=== PATIENT | female | born 1985 | race Caucasian/White ===

== ENCOUNTER 2023-02-24 18:24 | Emergency (ER) | payer OTHER, SELFPAY ==
[2023-02-24 18:31] VITALS: BP 111/69; BP 189/89; PULSE 100; PULSE 99; RESP 18; TEMP 37; O2SAT 97; O2SAT 98; BMI 31.3
--- NOTE | 2023-02-24 18:37 | PC.NURSE ---
reported she used 3 bags of heroin today. Found unresponsive in car. Narcan 8mg administered. n/v. denies chest pain/WU/SOB. A & Ox3. VSS. Objectively tremulous and diaphoretic. Placed on bedside monitor. Awaiting price changer w/ security
--- NOTE | 2023-02-24 19:12 | ED.GENADULT ---
HPI - General Adult General Chief complaint: Overdose Stated complaint: OVERDOSE + NARCAN Time Seen by Provider: 02/24/23 19:07 Source: patient, RN notes reviewed and old records reviewed Mode of arrival: EMS Limitations: no limitations History of Present Illness HPI narrative: 38-year-old female presents for evaluation of ?I overdosed. ? Patient admits to using heroin around 4:30 p.m. Apparently she was found unresponsive in her car Patient was given Narcan by EMS Patient states that she remembers using 1 bag of heroin but she reports that she had 3 of them so she is unsure exactly how many she used She reports that she smokes the drugs and does not inject Patient reports this was an accidental overdose and she had no intent to harm herself She has no complaints at this time except that she is cold Related Data Allergies Allergy/AdvReac Type Severity Reaction Status Date / Time No Known Allergies Allergy Unverified 03/12/20 15:48 [No Known Allergies*] Review of Systems Constitutional: Constitutional: Reports chills and Denies fever(s) Cardiovascular: Cardiovascular: Denies chest pain and Denies dyspnea Respiratory: Respiratory: Denies dyspnea Gastrointestinal: Gastrointestinal: Denies abdominal pain Musculoskeletal: Musculoskeletal: Denies back pain PMFSH Social History Social History Advance Directives: No Advance Directives Information Provided: Yes Physical Exam ED Vital Signs: Vital Signs - 24 hr 02/24/23 18:31 Temperature 98.6 F Pulse Rate 99 Respiratory Rate 18 Blood Pressure 111/69 Pulse Oximetry 97 Oxygen Delivery Method Room Air BMI result Body Mass Index 31.3 Const General: healthy appearing, comfortable, no acute distress, alert and awake Nutritional Appearance: well nourished Orientation/consciousness: patient oriented x3 HENMT Head: Yes normocephalic and Yes atraumatic Eyes Eyelids: Yes eyelids normal Conjunctivae: conjunctivae normal Sclerae: sclerae normal Corneas: corneas normal Pupils: Equal, round and reactive pupils present EOM: EOMs intact bilaterally Neck Neck: Yes full ROM Resp Effort & Inspection: normal respiratory effort, able to speak in complete sentences and not labored Skin General skin exam: no rashes or lesions noted and elasticity normal Neuro General: patient oriented x3 Cranial nerves: Yes Equal, round and reactive pupils present and Yes Bilaterally intact EOM present Cognition (Neuro): normal cognition Extrem Other: Moving all extremities well without any obvious deformities Medical Decision Making Medical Decision Making [facility] Narrative: 38-year-old female presents for evaluation of an opioid overdose. She admits to using opiates and responded well to Narcan. She is wide awake, able to stay awake and answer all my questions appropriately. She is requesting discharge because she does not want to change into a hospital gown. I do not feel that the patient is at risk for becoming unresponsive again. The patient will be discharged at this time. Her mother is here to pick her up. she was given take home Narcan Differential Diagnosis Differential Diagnoses: The differential diagnosis associated with the presentation includes Opioid overdose Heroin abuse Substance abuse Polysubstance abuse Discharge Plan Discharge Clinical Impression: Drug overdose Patient Disposition: Home, Self-Care Instructions: Adult Overdose (ED) Additional Instructions: You are being discharged with Narcan for intranasal use for any accidental overdose in the future. You should avoid using any illicit substances Follow-up with your primary doctor
[2023-02-24] MEDS: Naloxone HCl Nasal TAKE HOME 4 MG SPRAY 8 MG NOSTRILALT (19:26)
== END 2023-02-24 19:31 | disposition home or self-care (01) ==
PROVIDERS: Emergency Provider Emergency Medicine; PCP Family Medicine
DX: T40.1X1A Poisoning by heroin, accidental (unintentional), initial encounter (principal); Y92.9 Unspecified place or not applicable
CPT/HCPCS: 99282; 99283

== ENCOUNTER 2024-01-12 14:21 | Outpatient (AMB) | payer OTHER, SELFPAY ==
[2024-01-12 14:25] VITALS: BP 100/64; PULSE 95; O2SAT 100; BMI 29.1
--- NOTE | 2024-01-12 14:25 | A.OFFVIS_ITS ---
Vital Signs 01/12/24 14:25 Height 4 ft 11 in Weight 144 lb 4 oz BMI 29.1 BP 100/64 Blood Pressure Location Rt brachial Position Sitting Pulse 95 Pulse Source Pulse Oximeter Pulse Oximetry (%) 100 Oxygen Delivery Method Room Air Intake Visit Reasons: Asthma Allergies No Known Allergies [No Known Allergies*] Allergy (Unverified 01/12/24 14:31) HPI HPI Asthma: Details: Shazia is a pleasant 38 year old female, former tobacco smoker, with less than 5 pack year history, currently vaping THC x 3-4 years with underlying asthma and h/o cervical cancer s/p chemo, radiation and partial hysterectomy at 29 years old. [facility] She was in the [employer] x 3 years, with no noted occupational exposures. She reports significant post nasal drip, dry cough. wheezing and dyspnea on moderate exertion for the last few months. She was recently prescribed Wixela 100 mcg 1-2 months ago, with minimal improvement in symptoms. She continues to use albuterol multiple times per day with good effect. Recent PFT suggestive of asthma, FEV1 62%, post FEV1 75%, TLC normal, DLCO normal and increased RV. She denies prior history of asthma. CXR 07/19 unremarkable. Denies any need for intubation in the past. She reports seasonal allergies, no recent allergy testing. She does have a cat at home. She denies any pertinent family history. [facility] Social History (Updated 01/12/24 @ 14:31 by Marcie Zuniga CMA) Patient Tobacco Use Status: Former Tobacco user Tobacco use type: Cigarette e-Cigarette/Vaping Use: Currently Using Review of Systems Const Denies chills, Denies excessive sweating, Denies fever(s), Denies headache(s) and Denies night sweats Eyes Denies dry eyes, Denies irritation and Denies itchy eyes ENT Reports Normal hearing present, Denies headache(s) and Denies nasal discharge Card Denies chest pain, Denies chest pain at rest, Denies chest pain with activity, Denies claudication, Denies leg edema, Denies orthopnea and Denies paroxysmal nocturnal dyspnea Resp Denies chest congestion, Denies excessive phlegm production, Denies pain on inspiration, Denies pain with cough and Denies stridor Musc Denies myalgias Neuro Reports Normal hearing present and Denies headache(s) Endo Denies excessive sweating Ayaan/Lymph Denies lymphadenopathy Aller/Immun Denies itchy eyes and Denies seasonal rhinorrhea Physical Exam Vital Signs: Last Vital Signs Pulse 95 01/12/24 14:25 BP 100/64 01/12/24 14:25 Pulse Ox 100 01/12/24 14:25 Oxygen Delivery Method Room Air 01/12/24 14:25 BMI result Body Mass Index 29.1 Const General: cooperative, healthy appearing, comfortable, no acute distress, well developed and alert Orientation/consciousness: patient oriented x3 Limitations: no limitations HEENT Head: Yes normal to inspection, Yes normocephalic and Yes atraumatic Ears: hearing grossly normal bilaterally and external ears normal Eyes General: appearance normal, both eyes and all related structures Eyelids: Yes eyelids normal Sclerae: sclerae normal EOM: EOMs intact bilaterally Neck Neck: Yes normal visual inspection and Yes no lymphadenopathy Lymphatic: no lymphadenopathy noted Chest Chest palpation & inspection: normal inspection of the chest Resp Effort & Inspection: normal respiratory effort, able to speak in complete sentences, no audible wheezes, no cough, no stridor, not tachypneic, no tripod p ositioning and no use of accessory muscles Auscultation: clear to auscultation bilaterally Cardio Jugular venous distension: no JVD Rate: regular rate Rhythm: regular rhythm Skin Other: warm, dry General skin exam: no rashes or lesions noted Neuro General: patient oriented x3 Cranial nerves: Yes Normal hearing present Cognition (Neuro): normal cognition Gait exam (Neuro): Normal gait present Extrem General: Yes normal to inspection, Yes capillary refill normal, Yes no clubbing, cyanosis or edema and Yes no pedal edema Psych Appearance: grossly normal and well kempt Speech and movement: Normal speech and movement present and Clear speech present Affect: normal affect Attitude: cooperative Thought process: Normal thought process present Thought content: Normal thought content present Insight: Good insight present (Psych) Judgement: Good judgement present (Psych) Assessment & Plan Assessment & Plan (1) Asthma: Code(s): J45.909 - Unspecified asthma, uncomplicated Category: Medical (2) Environmental allergies: Code(s): Z91.09 - Other allergy status, other than to drugs and biological substances Category: Medical (3) Post-nasal drip: Code(s): R09.82 - Postnasal drip Category: Medical Plan Shazia presents with newly diagnosed asthma and suboptimal response with Wixela 100 mcg, using albuterol frequently. Will increase to 250 mcg. There appears to be an allergic component to symptoms, will send for RAST and encouraged use of daily anthistamine. Will trial nasal ipratropium for signficant post nasal drip. All questions were answered and patient is in agreement of plan. Will follow up to review results and response to increased dose of Wixela. Orders: Orders Resp Allergy Profile Region I 01/12/24 Z91.09 - Other allergy status, other than to drugs and biological substances Complete Blood Count Auto Diff Today Z91.09 - Other allergy status, other than to drugs and biological substances Immunoglobulin E Today Z91.09 - Other allergy status, other than to drugs and biological substances Medications: New albuterol sulfate 90 mcg/actuation 2 puffs inhalation Q4-6H PRN 1 ea 2RF shortness of breath or wheezing ipratropium bromide administer into each nostril 2 sprays intranasal BID 30 mL 3RF fluticasone propion-salmeterol 250-50 mcg/dose (Wixela Inhub) 1 inh inhalation Q12H 60 ea 3RF Coding Level of Care Code New Pt Level 4 (37677) Diagnoses Asthma J45.909 Environmental allergies Z91.09 Post-nasal drip R09.82
== END 2024-01-12 14:54 | disposition home or self-care (01) ==
PROVIDERS: PCP Family Medicine; Referring Provider Nurse Practitioner Family; Visit Provider Nurse Practitioner Family
DX: J45.909 Unspecified asthma, uncomplicated (principal); Z91.09 Other allergy status, other than to drugs and biological substances; R09.82 Postnasal drip
CPT/HCPCS: 99204

== ENCOUNTER → 2024-01-12 14:21 | Outpatient (BNVA) | payer OTHER, SELFPAY | PROVIDERS: PCP Family Medicine; Referring Provider Nurse Practitioner Family; Visit Provider Nurse Practitioner Family | DX: J45.909 Unspecified asthma, uncomplicated (principal); R09.82 Postnasal drip; Z91.09 Other allergy status, other than to drugs and biological substances; Z87.891 Personal history of nicotine dependence | CPT/HCPCS: 99202 ==

== ENCOUNTER 2024-01-23 08:24 | Outpatient (AMB) | payer OTHER, SELFPAY ==
--- NOTE | 2024-01-22 15:34 | MHC.OFFVIS ---
Vital Signs 01/23/24 08:30 Height 4 ft 11 in Weight 147 lb 2 oz BMI 29.7 BP 112/70 Blood Pressure Location Rt brachial Position Sitting Pulse 91 Pulse Source Pulse Oximeter Pulse Oximetry (%) 96 Oxygen Delivery Method Room Air Intake Visit Reasons: Asthma Allergies No Known Allergies [No Known Allergies*] Allergy (Unverified 01/23/24 08:33) HPI HPI Asthma: Details: Shazia is a pleasant 38 year old female, former tobacco smoker, with less than 5 pack year history, currently vaping THC x 3-4 years with underlying asthma and h/o cervical cancer s/p chemo, radiation and partial hysterectomy at 29 years old. At the last visit, she reported significant post nasal drip, dry cough, wheezing and dyspnea on moderate exertion for the last few months. Her Wixela was increased from 100 mcg to 250 mcg less than a week ago and has yet to obtain RAST testing. Today she presents for an acute visit. She notes her nasal congestion and sinus pressure is worsening, with tenacious yellow to white sputum. She denies any fevers or chills. [facility] Social History Patient Tobacco Use Status: Former Tobacco user Tobacco use type: Cigarette e-Cigarette/Vaping Use: Currently Using Review of Systems Const Denies chills, Denies excessive sweating, Denies fever(s), Denies headache(s) and Denies night sweats Eyes Denies dry eyes, Denies irritation and Denies itchy eyes ENT Reports Normal hearing present, Denies headache(s), Reports nasal congestion, Reports nasal discharge, Reports post nasal drip and Reports sinus pain Card Denies chest pain, Denies chest pain at rest, Denies chest pain with activity, Denies claudication, Denies leg edema, Reports dyspnea on exertion, Denies orthopnea and Denies paroxysmal nocturnal dyspnea Resp Reports change in phlegm color, Reports cough, Denies excessive phlegm production, Denies pain on inspiration, Denies pain with cough, Reports dyspnea on exertion, Denies stridor and Reports wheezing Musc Denies myalgias Neuro Reports Normal hearing present and Denies headache(s) Endo Denies excessive sweating Ayaan/Lymph Denies lymphadenopathy Aller/Immun Denies itchy eyes, Denies seasonal rhinorrhea and Reports wheezing Physical Exam Vital Signs: Last Vital Signs Pulse 91 07/30/24 08:30 BP 112/70 01/23/24 08:30 Pulse Ox 96 01/23/24 08:30 Oxygen Delivery Method Room Air 01/23/24 08:30 BMI result Body Mass Index 29.7 Neuro Cranial nerves: Yes Normal hearing present Assessment & Plan Assessment & Plan (1) Asthma-COPD overlap syndrome: Code(s): J44.89 - Other specified chronic obstructive pulmonary disease Category: Medical (2) Environmental allergies: Code(s): Z91.09 - Other allergy status, other than to drugs and biological substances Category: Medical (3) Post-nasal drip: Code(s): R09.82 - Postnasal drip Category: Medical (4) Sinusitis: Code(s): J32.9 - Chronic sinusitis, unspecified Category: Medical Plan Discussed effectiveness of increased Wixela may take another week before noticing any improvements. Encouraged patient to obtain RAST labs today. She trialed ipratropium with no change in post nasal drip. She presents today with worsening sinusitis and no recent antibiotic treatment, will send augmentin. She is aware if symptoms worsen to call the office or PCP. All questions were answered and patient is in agreement of plan. Will follow up for regularly scheduled appointment in January or sooner if needed. Medications: New amoxicillin-pot clavulanate 875-125 mg 1 tab PO Q12H 20 tabs 0RF Coding Level of Care Code Est Pt Level 3 (90779) Diagnoses Asthma-COPD overlap syndrome J44.89 Environmental allergies Z91.09 Post-nasal drip R09.82 Sinusitis J32.9
[2024-01-23 08:30] VITALS: BP 112/70; PULSE 91; O2SAT 96; BMI 29.7
== END 2024-01-23 08:51 | disposition home or self-care (01) ==
PROVIDERS: PCP Family Medicine; Visit Provider Nurse Practitioner Family
DX: J44.89 Other specified chronic obstructive pulmonary disease (principal); Z91.09 Other allergy status, other than to drugs and biological substances; R09.82 Postnasal drip; J32.9 Chronic sinusitis, unspecified
CPT/HCPCS: 99213

== ENCOUNTER → 2024-01-23 08:24 | Outpatient (BNVA) | payer OTHER, SELFPAY | PROVIDERS: PCP Family Medicine; Visit Provider Nurse Practitioner Family | DX: J44.89 Other specified chronic obstructive pulmonary disease (principal); J32.9 Chronic sinusitis, unspecified; R09.82 Postnasal drip; Z91.09 Other allergy status, other than to drugs and biological substances | CPT/HCPCS: 99212 ==

== ENCOUNTER 2024-01-23 10:15 | Outpatient (REF) | payer OTHER, SELFPAY ==
[2024-01-23 11:51] LABS: Basophils Absolute Auto 0.1 X10*3/uL (0.0-0.2); Basophils Percent Auto 0.8 % (0-2); Eosinophils Percent Auto 23.9 % (0-4); Hematocrit 38.9 % (37.0-47.0); Hemoglobin 13.5 g/dl (12.0-16.0); Imm Gran Abs Auto 0.02 X10*3/uL (0.00-0.03); Imm Gran Pct Auto 0.2 % (0.0-0.4); Lymphocytes Absolute Auto 3.1 X10*3/uL (1.2-4.9); Lymphocytes Percent Auto 37.9 % (20-40); MANUAL DIFF FLAG SCAN; Mean Corpuscular HGB Conc 34.7 g/dl (31.0-35.0); Mean Corpuscular Hemoglobin 29.5 pg (27.0-33.0); Mean Corpuscular Volume 85.1 fL (80.0-98.0); Mean Platelet Volume 8.7 fL (9.4-12.3); Monocytes Absolute Auto 0.6 X10*3/uL (0.1-1.2); Monocytes Percent Auto 6.8 % (2-11); Neutrophils Absolute Auto 2.5 x10*3/uL (2.0-8.3); Neutrophils Percent Auto 30.4 % (45-73); Platelet Count 320 X10*3/uL (160-400); Red Blood Count 4.57 X10*6/uL (4.20-5.50); Red Cell Distribution Width 12.5 % (11.0-16.0); SCAN SMEAR FLAG 1; White Blood Count 8.3 X10*3/uL (4.8-10.8)
[2024-01-23 12:13] LABS: SLIDE REVIEW VERIFIED
[2024-01-25 09:48] LABS: Class Alternaria alternata 0; Class Aspergillus fumigatus 0; Class Bermuda Grass 0; Class Birch 0; Class Cat Dander 0; Class Cladosporium herbarum 0; Class Cockroach 0; Class Common Ragweed 0; Class Cottonwood 0; Class Derm. pterony 0; Class Dermatophagoides farinae 0; Class Dog Dander 0; Class Elm 0; Class Maple Box Elder 0; Class Mountain Cedar 0; Class Mouse Urine Protein 0; Class Mugwort 0; Class Oak 0; Class Penicillium crysogenum 0; Class Rough Pigweed 0; Class Sheep Sorrel 0; Class Sycamore 0; Class Timothy Grass 0; Class Walnut Tree 0; Class White Ash 0; Class White Mulberry 0; D001 IgE D pteronyssinus <0.10 kU/L; D002 - IgE D farinae <0.10 kU/L; E001 - IgE Cat Dander <0.10 kU/L; E005 - IgE Dog Dander <0.10 kU/L; E072-IgE Mouse Urine <0.10 kU/L; G002 IgE Bermuda Grass <0.10 kU/L; G006 - IgE Timothy Grass <0.10 kU/L; I006-IgE Cockroach, German <0.10 kU/L; Immunoglobulin E 96 kU/L (<OR=114); M001 IgE Penicillium chrysogen <0.10 kU/L; M002 - IgE Cladosporium herbar <0.10 kU/L; M003 - IgE Aspergillus fumigat <0.10 kU/L; M006 - IgE Alternaria alternat <0.10 kU/L; T001 IgE Maple/Box Elder <0.10 kU/L; T003 IgE Common Silver Birch <0.10 kU/L; T006 - IgE Cedar, Mountain <0.10 kU/L; T007 - IgE Oak, White <0.10 kU/L; T008 IgE Elm, American <0.10 kU/L; T010 - IgE Walnut <0.10 kU/L; T011 - IgE Maple Leaf Sycamore <0.10 kU/L; T014 - IgE Cottonwood <0.10 kU/L; T015 - IgE Ash, White <0.10 kU/L; T070 - IgE White Mulberry <0.10 kU/L; W001 - IgE Ragweed, Short <0.10 kU/L; W006 - IgE Mugwort <0.10 kU/L; W014 IgE Pigweed, Common <0.10 kU/L; W018 IgE Sheep Sorrel <0.10 kU/L
== END 2024-01-23 10:16 | disposition home or self-care (01) ==
LOC: HO.WFDLDS 10:15
PROVIDERS: Visit Provider Nurse Practitioner Family
DX: Z91.09 Other allergy status, other than to drugs and biological substances (principal)
CPT/HCPCS: 36415; 82785; 85025; 86003

== ENCOUNTER 2024-03-05 13:57 | Outpatient (AMB) | payer OTHER, SELFPAY ==
[2024-03-05 14:11] VITALS: BP 122/80; PULSE 97; O2SAT 98; BMI 29.6
--- NOTE | 2024-03-05 14:11 | A.OFFVIS_ITS ---
Vital Signs 03/05/24 14:11 Height 4 ft 11 in Weight 146 lb 8 oz BMI 29.6 BP 122/80 Blood Pressure Location Rt brachial Position Sitting Pulse 97 Pulse Source Pulse Oximeter Pulse Oximetry (%) 98 Oxygen Delivery Method Room Air Intake Visit Reasons: Asthma Allergies No Known Allergies [No Known Allergies*] Allergy (Unverified 03/05/24 14:14) HPI HPI Asthma: Details: Shazia is a pleasant 38 year old female, former tobacco smoker, with less than 5 pack year history, currently vaping THC x 3-4 years with underlying asthma and h/o cervical cancer s/p chemo, radiation and partial hysterectomy at 29 years old. She continues to report significant post nasal drip, dry cough, wheezing and dyspnea on moderate exertion for the last few months. She was placed on Wixela 250 mcg with suboptimal effect. She was also treated with ipratropium and augmentin for sinusitis with no change in symptoms. [facility] Social History Patient Tobacco Use Status: Former Tobacco user Tobacco use type: Cigarette e-Cigarette/Vaping Use: Currently Using Review of Systems Const Denies chills, Denies excessive sweating, Denies fever(s), Denies headache(s) and Denies night sweats Eyes Denies dry eyes, Denies irritation and Denies itchy eyes ENT Reports Normal hearing present, Denies headache(s), Reports nasal congestion, Reports nasal discharge, Reports post nasal drip and Reports sinus pain Card Denies chest pain, Denies chest pain at rest, Denies chest pain with activity, Denies claudication, Denies leg edema, Reports dyspnea on exertion, Denies orthopnea and Denies paroxysmal nocturnal dyspnea Resp Reports change in phlegm color, Reports cough, Denies excessive phlegm production, Denies pain on inspiration, Denies pain with cough, Reports dyspnea on exertion, Denies stridor and Reports wheezing Musc Denies myalgias Neuro Reports Normal hearing present and Denies headache(s) Endo Denies excessive sweating Ayaan/Lymph Denies lymphadenopathy Aller/Immun Denies itchy eyes, Denies seasonal rhinorrhea and Reports wheezing Physical Exam Vital Signs: Last Vital Signs Pulse 97 03/05/24 14:11 BP 122/80 03/05/24 14:11 Pulse Ox 98 03/05/24 14:11 Oxygen Delivery Method Room Air 03/05/24 14:11 BMI result Body Mass Index 29.6 Const General: cooperative, healthy appearing, comfortable, no acute distress, well developed and alert Orientation/consciousness: patient oriented x3 Limitations: no limitations HEENT Head: Yes normal to inspection, Yes normocephalic and Yes atraumatic Ears: hearing grossly normal bilaterally and external ears normal Eyes General: appearance normal, both eyes and all related structures Eyelids: Yes eyelids normal Sclerae: sclerae normal EOM: EOMs intact bilaterally Neck Neck: Yes normal visual inspection and Yes no lymphadenopathy Lymphatic: no lymphadenopathy noted Chest Chest palpation & inspection: normal inspection of the chest Resp Effort & Inspection: normal respiratory effort, able to speak in complete sentences, no audible wheezes, no cough, no stridor, not tachypneic, no tripod positioning and no use of accessory muscles Auscultation: clear to auscultation bilaterally Cardio Jugular venous distension: no JVD Rate: regular rate Rhythm: regular rhythm Skin Other: warm, dry General skin exam: no rashes or lesions noted Neuro General: patient oriented x3 Cranial nerves: Yes Normal hearing present Cognition (Neuro): normal cognition Gait exam (Neuro): Normal gait present Extrem General: Yes normal to inspection, Yes capillary refill normal, Yes no clubbing, cyanosis or edema and Yes no pedal edema Psych Appearance: grossly normal and well kempt Speech and movement: Normal speech and movement present and Clear speech present Affect: normal affect Attitude: cooperative Thought process: Normal thought process present Thought content: Normal thought content present Insight: Good insight present (Psych) Judgement: Good judgement present (Psych) Assessment & Plan Assessment & Plan (1) Asthma-COPD overlap syndrome: Code(s): J44.89 - Other specified chronic obstructive pulmonary disease Category: Medical (2) Environmental allergies: Code(s): Z91.09 - Other allergy status, other than to drugs and biological substances Category: Medical (3) Post-nasal drip: Code(s): R09.82 - Postnasal drip Category: Medical (4) Sinusitis: Code(s): J32.9 - Chronic sinusitis, unspecified Category: Medical (5) Chronic cough: Code(s): R05.3 - Chronic cough Category: Medical (6) Eosinophilia: Code(s): D72.10 - Eosinophilia, unspecified Category: Medical Plan Will send for sputum culture and enter labs for immunodeficiency, as she reports h/o recurrent URI, specifically sinusitis. 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 Will also obtain labs and chest CT to assess for parenchymal disease. All questions were answered and patient is in agreement of plan. Will follow up to review results or sooner if needed. Orders: Orders 2 Sputum Cult + Gram stain 03/05/24 R05.3 - Chronic cough ANCA Vasculitides Today D72.10 - Eosinophilia, unspecified CRP High Sensitivity Today D72.10 - Eosinophilia, unspecified Erythrocyte Sedimentation Rate Today D72.10 - Eosinophilia, unspecified CT chest wo IV con Today D72.10 - Eosinophilia, unspecified, R05.3 - Chronic cough Medications: New prednisone 40 mg (2 x 20 mg) PO DAILY 10 tabs 0RF Coding Level of Care Code Est Pt Level 4 (70461) Diagnoses Asthma-COPD overlap syndrome J44.89 Environmental allergies Z91.09 Post-nasal drip R09.82 Sinusitis J32.9 Chronic cough R05.3 Eosinophilia D72.10
== END 2024-03-05 14:46 | disposition home or self-care (01) ==
PROVIDERS: PCP Family Medicine; Visit Provider Nurse Practitioner Family
DX: J44.89 Other specified chronic obstructive pulmonary disease (principal); Z91.09 Other allergy status, other than to drugs and biological substances; R09.82 Postnasal drip; J32.9 Chronic sinusitis, unspecified; R05.3 Chronic cough; D72.10 Eosinophilia, unspecified
CPT/HCPCS: 99214

== ENCOUNTER → 2024-03-05 13:57 | Outpatient (BNVA) | payer OTHER, SELFPAY | PROVIDERS: PCP Family Medicine; Visit Provider Nurse Practitioner Family | DX: J44.89 Other specified chronic obstructive pulmonary disease (principal); J32.9 Chronic sinusitis, unspecified; R09.82 Postnasal drip; R05.3 Chronic cough; D72.10 Eosinophilia, unspecified; Z91.09 Other allergy status, other than to drugs and biological substances | CPT/HCPCS: 99212 ==

== ENCOUNTER 2025-02-07 09:40 | Outpatient (AMB) | payer OTHER, SELFPAY ==
--- NOTE | 2025-02-07 09:42 | MHC.OFFVIS ---
Vital Signs 02/07/25 09:43 Height 4 ft 11 in Weight 165 lb 8 oz BMI 33.4 BP 110/78 Blood Pressure Location Rt brachial Position Sitting Pulse 101 H Pulse Source Pulse Oximeter Pulse Oximetry (%) 95 Oxygen Delivery Method Room Air Intake Visit Reasons: Asthma Allergies No Known Allergies (No Known Allergies*) Allergy (Unverified 02/07/25 09:45) HPI HPI Asthma: Details: Shazia is a pleasant 40 year old female, former tobacco smoker, with less than 5 pack year history, currently vaping THC x 3-4 years with underlying asthma and h/o cervical cancer s/p chemo, radiation and partial hysterectomy at 29 years old. She was lost to follow up, last visit 02/2024 and presents to discuss persistent symptoms of uncontrolled asthma and chronic sinusitis. At the last visit, she was given prednisone with improvement in symptoms. She continues to report significant post nasal drip, dry cough, wheezing and dyspnea on moderate exertion, using Wixela and albuterol MDI frequently. She denies any visits to urgent care or hospitalizations since the last visit. [facility] Social History Patient Tobacco Use Status: Former Tobacco user Tobacco use type: Cigarette e-Cigarette/Vaping Use: Currently Using Review of Systems Const Denies chills, Denies excessive sweating, Denies fever(s), Denies headache(s) and Denies night sweats Eyes Denies dry eyes, Denies irritation and Denies itchy eyes ENT Reports Normal hearing present, Denies headache(s), Reports nasal congestion, Reports nasal discharge and Reports post nasal drip Card Denies chest pain, Denies chest pain at rest, Denies chest pain with activity, Denies claudication, Denies leg edema, Reports dyspnea on exertion, Denies orthopnea and Denies paroxysmal nocturnal dyspnea Resp Reports change in phlegm color, Reports cough, Denies excessive phlegm production, Denies pain on inspiration, Denies pain with cough, Reports dyspnea on exertion, Denies stridor and Reports wheezing Musc Denies myalgias Neuro Reports Normal hearing present and Denies headache(s) Endo Denies excessive sweating Ayaan/Lymph Denies lymphadenopathy Aller/Immun Denies itchy eyes, Denies seasonal rhinorrhea and Reports wheezing Physical Exam Vital Signs: Last Vital Signs Pulse 101 H 02/07/25 09:43 BP 110/78 02/07/25 09:43 Pulse Ox 95 02/07/25 09:43 Oxygen Delivery Method Room Air 02/07/25 09:43 BMI result Body Mass Index 33.4 Const General: cooperative, healthy appearing, comfortable, no acute distress, well developed and alert Orientation/consciousness: patient oriented x3 Limitations: no limitations HEENT Head: Yes normal to inspection, Yes normocephalic and Yes atraumatic Ears: hearing grossly normal bilaterally and external ears normal Eyes General: appearance normal, both eyes and all related structures Eyelids: Yes eyelids normal Sclerae: sclerae normal EOM: EOMs intact bilaterally Neck Other: nasal congestion Neck: Yes normal visual inspection and Yes no lymphadenopathy Lymphatic: no lymphadenopathy noted Chest Chest palpation & inspection: normal inspection of the chest Resp Effort & Inspection: normal respiratory effort, able to speak in complete sentences, no audible wheezes, no cough, no stridor, not tachypneic, no tripod positioning and no use of accessory muscles Auscultation: clear to auscultation bilaterally Cardio Jugular venous distension: no JVD Rate: regular rate Rhythm: regular rhythm Skin Other: warm, dry General skin exam: no rashes or lesions noted Neuro General: patient oriented x3 Cranial nerves: Yes Normal hearing present Cognition (Neuro): normal cognition Gait exam (Neuro): Normal gait present Extrem General: Yes normal to inspection, Yes capillary refill normal, Yes no clubbing, cyanosis or edema and Yes no pedal edema Psych Appearance: grossly normal and well kempt Speech and movement: Normal speech and movement present and Clear speech present Affect: normal affect Attitude: cooperative Thought process: Normal thought process present Thought content: Normal thought content present Insight: Good insight present (Psych) Judgement: Good judgement present (Psych) Assessment & Plan Assessment & Plan (1) Asthma-COPD overlap syndrome: Code(s): J44.89 - Other specified chronic obstructive pulmonary disease Category: Medical (2) Chronic cough: Code(s): R05.3 - Chronic cough Category: Medical (3) Eosinophilia: Code(s): D72.10 - Eosinophilia, unspecified Category: Medical Plan Will switch Wixela to high dose Breo. Will repeat eosinophil level as patient may need to initiate biologic therapy and send for CXR to ensure no underlying parenchymal condition. Previously eosinophil levels significantly elevated, will treat with prednisone at this time patient with significant sinusitis symptoms. All questions were answered and patient is in agreement of plan. Will follow up in 6 weeks or sooner if needed. Orders: Orders XR chest 2V Today R05.3 - Chronic cough Complete Blood Count Auto Diff Today D72.10 - Eosinophilia, unspecified Medications: New fluticasone furoate-vilanterol 200-25 mcg/dose (Breo Ellipta) 1 inh inhalation DAILY 60 ea 3RF prednisone see taper instructions 20 mg x 5 followed b 10 mg x 5 days 10 mg PO DIRECTED 15 tabs 0RF Coding Level of Care Code Est Pt Level 4 (77657) Diagnoses Asthma-COPD overlap syndrome J44.89 Chronic cough R05.3 Eosinophilia D72.10
[2025-02-07 09:43] VITALS: BP 110/78; PULSE 101; O2SAT 95; BMI 33.4
== END 2025-02-07 10:12 | disposition home or self-care (01) ==
LOC: HO.HPSW 09:40
PROVIDERS: PCP Family Medicine; Visit Provider Nurse Practitioner Family
DX: J44.89 Other specified chronic obstructive pulmonary disease (principal); R05.3 Chronic cough; D72.10 Eosinophilia, unspecified
CPT/HCPCS: 99214

== ENCOUNTER 2025-02-07 09:40 | Outpatient (REF) | payer OTHER, SELFPAY ==
[2025-02-07 14:17] LABS: MANUAL DIFF FLAG NO
[2025-02-07 14:28] LABS: Hematocrit 41.0 % (37.0-47.0); Hemoglobin 14.0 g/dl (12.0-16.0); Imm Gran Abs Auto 0.03 X10*3/uL (0.00-0.03); Imm Gran Pct Auto 0.3 % (0.0-0.4); Lymphocytes Absolute Auto 2.1 X10*3/uL (1.2-4.9); Mean Corpuscular HGB Conc 34.1 g/dl (31.0-35.0); Mean Corpuscular Hemoglobin 30.1 pg (27.0-33.0); Mean Corpuscular Volume 88.2 fL (80.0-98.0); NRBC Abs Auto 0.000 X10*3/uL (0.0-0.012); NRBC Pct Auto 0.0 /100WBC (0.0-0.2); Platelet Count 346 X10*3/uL (160-400); Red Blood Count 4.65 X10*6/uL (4.20-5.50); White Blood Count 9.1 X10*3/uL (4.8-10.8)
[2025-02-11 14:57] LABS: Proteinase 3 PR3 Antibodies <1.0 AI
== END 2025-02-07 09:41 | disposition home or self-care (01) ==
LOC: HO.WFDLDS 09:40
PROVIDERS: PCP Family Medicine; Visit Provider Nurse Practitioner Family
DX: J44.89 Other specified chronic obstructive pulmonary disease (principal); R05.3 Chronic cough; D72.10 Eosinophilia, unspecified; Z87.891 Personal history of nicotine dependence
CPT/HCPCS: 36415; 85025; 85652; 86021; 86141; 99212

== ENCOUNTER 2025-05-14 09:28 | Outpatient (AMB) | payer OTHER, SELFPAY ==
[2025-05-14 09:29] VITALS: BP 124/78; PULSE 90; O2SAT 93; BMI 34.9
--- NOTE | 2025-05-14 09:29 | A.OFFVIS_ITS ---
Vital Signs 05/14/25 09:29 Height 4 ft 11 in Weight 173 lb BMI 34.9 BP 124/78 Blood Pressure Location Rt brachial Position Sitting Pulse 90 Pulse Source Pulse Oximeter Pulse Oximetry (%) 93 Oxygen Delivery Method Room Air Intake Visit Reasons: Asthma Allergies No Known Allergies (No Known Allergies*) Allergy (Unverified 05/14/25 09:32) HPI HPI Asthma: Details: Shazia is a pleasant 40 year old female, former less than 5 pack year smoker, currently vaping THC x 3-4 years with underlying asthma, chronic sinusitis and h/o cervical cancer s/p chemo, radiation and partial hysterectomy at 29 years old. She continues to report suboptimal control with Wixela and Albuterol MDI due to dry cough, wheezing and dyspnea on moderate exertion, in addition to significant sinus symptoms. Previously given prednisone as patient with significant eosinophilic contributing with resolution of symptoms. She denies any visits to urgent care or hospitalizations since the last visit. Today she presents to discuss biologic therapy. [facility] Social History Patient Tobacco Use Status: Former Tobacco user Tobacco use type: Cigarette e-Cigarette/Vaping Use: Currently Using Review of Systems Const Denies chills, Denies excessive sweating, Denies fever(s), Denies headache(s) and Denies night sweats Eyes Denies dry eyes, Denies irritation and Denies itchy eyes ENT Reports Normal hearing present, Denies headache(s), Reports nasal congestion, Reports nasal discharge and Reports post nasal drip Card Denies chest pain, Denies chest pain at rest, Denies chest pain with activity, Denies claudication, Denies leg edema, Reports dyspnea on exertion, Denies orthopnea and Denies paroxysmal nocturnal dyspnea Resp Reports cough, Denies excessive phlegm production, Denies pain on inspiration, Denies pain with cough, Reports dyspnea on exertion, Denies stridor and Reports wheezing Musc Denies myalgias Neuro Reports Normal hearing present and Denies headache(s) Endo Denies excessive sweating Ayaan/Lymph Denies lymphadenopathy Aller/Immun Denies itchy eyes, Denies seasonal rhinorrhea and Reports wheezing Physical Exam Vital Signs: Last Vital Signs Pulse 90 05/14/25 09:29 BP 124/78 05/14/25 09:29 Pulse Ox 93 05/14/25 09:29 Oxygen Delivery Method Room Air 05/14/25 09:29 BMI result Body Mass Index 34.9 Const General: cooperative, healthy appearing, comfortable, no acute distress, well developed and alert Orientation/consciousness: patient oriented x3 Limitations: no limitations HEENT Head: Yes normal to inspection, Yes normocephalic and Yes atraumatic Ears: hearing grossly normal bilaterally and external ears normal Eyes General: appearance normal, both eyes and all related structures Eyelids: Yes eyelids normal Sclerae: sclerae normal EOM: EOMs intact bilaterally Neck Other: nasal congestion Neck: Yes normal visual inspection and Yes no lymphadenopathy Lymphatic: no lymphadenopathy noted Chest Chest palpation & inspection: normal inspection of the chest Resp Effort & Inspection: normal respiratory effort, able to speak in complete sentences, no audible wheezes, no cough, no stridor, not tachypneic, no tripod positioning and no use of accessory muscles Auscultation: clear to auscultation bilaterally Cardio Jugular venous distension: no JVD Rate: regular rate Rhythm: regular rhythm Skin Other: warm, dry General skin exam: no rashes or lesions noted Neuro General: patient oriented x3 Cranial nerves: Yes Normal hearing present Cognition (Neuro): normal cognition Gait exam (Neuro): Normal gait present Extrem General: Yes normal to inspection, Yes capillary refill normal, Yes no clubbing, cyanosis or edema and Yes no pedal edema Psych Appearance: grossly normal and well kempt Speech and movement: Normal speech and movement present and Clear speech present Affect: normal affect Attitude: cooperative Thought process: Normal thought process present Thought content: Normal thought content present Insight: Good insight present (Psych) Judgement: Good judgement present (Psych) Assessment & Plan Assessment & Plan (1) Asthma-COPD overlap syndrome: Code(s): J44.89 - Other specified chronic obstructive pulmonary disease Category: Medical (2) Chronic cough: Code(s): R05.3 - Chronic cough Category: Medical (3) Eosinophilia: Code(s): D72.10 - Eosinophilia, unspecified Category: Medical Plan Shazia reports suboptimal control on current regimen of Wixela, using albuterol MDI frequently. We discussed trialing a biologic that would target eosinophils as patient with significant elevations in the past and resolution of symptoms with prednisone. Will send prescription for Fasenra. Patient with eosinophilia and poor asthma control, will treat with prednisone. She is aware to call if symptoms change/worsen. All questions were answered and patient is in agreement of plan. Will follow up in 3 months or sooner if needed. Medications: New prednisone see taper instructions; 40 mg Daily x3 days, 30 mg daily x3 days, 20 mg daily x3 days, 10 mg daily x3 days 10 mg PO DIRECTED 30 tabs 0RF Coding Level of Care Code Est Pt Level 4 (46816) Diagnoses Asthma-COPD overlap syndrome J44.89 Chronic cough R05.3 Eosinophilia D72.10
== END 2025-05-14 09:49 | disposition home or self-care (01) ==
LOC: HO.HPSW 09:28
PROVIDERS: PCP Family Medicine; Referring Provider Nurse Practitioner Family; Visit Provider Nurse Practitioner Family
DX: J44.89 Other specified chronic obstructive pulmonary disease (principal); R05.3 Chronic cough; D72.10 Eosinophilia, unspecified
CPT/HCPCS: 99214

== ENCOUNTER → 2025-05-14 09:28 | Outpatient (BNVA) | payer OTHER, SELFPAY | PROVIDERS: PCP Family Medicine; Visit Provider Nurse Practitioner Family | DX: J44.89 Other specified chronic obstructive pulmonary disease (principal); R05.3 Chronic cough; D72.10 Eosinophilia, unspecified; Z87.891 Personal history of nicotine dependence | CPT/HCPCS: 99212 ==